=== PATIENT | female | born 1995 | race African-American/Black ===

== ENCOUNTER 2019-05-15 02:56 | Emergency (ER) | payer SELFPAY ==
[~2019-05-15] VITALS: Ht 167.6 cm; Wt 53.0 kg
[2019-05-15] MEDS ORDERED: SODIUM CHLORIDE 0.9% 1,000 ML IV ONE (04:27)
[2019-05-15] MEDS ORDERED: MORPHINE SULFATE 4 MG/ML CPJ (NOT FOR IM USE) IV STA (04:27)
[2019-05-15 05:25] LABS: CHLORIDE 107 mEq/L (98-107)
[2019-05-15 05:29] LABS: BASOPHILS % 0.1 % (0.0-2.0); EOSINOPHILS % 0.6 % (0.0-5.0); HEMATOCRIT. 34.3 % (36.0-48.0); LYMPHOCYTES % 11.2 % (20.0-50.0); MEAN CORPUSCULAR HEMOGLOBIN 24.4 pg (28.0-32.0); MEAN CORPUSCULAR VOLUME 76.1 fL (81.0-99.0); MEAN PLATELET VOLUME 7.9 fl (7.4-10.4); MONOCYTES % 4.6 % (2.0-8.0); NEUTROPHILS % 83.5 % (40.0-76.0); PLATELET 261 x1000/uL (130-400)
[2019-05-15 05:35] LABS: PROTHROMBIN TIME 10.5 sec (9.6-11.0)
[2019-05-15 05:46] LABS: CLARITY URINE CLOUDY (CLEAR); COLOR URINE YELLOW (YELLOW); KETONES URINE NEGATIVE (NEGATIVE); LEUKOCYTE ESTERASE URINE TRACE (NEGATIVE); NITRITE URINE NEGATIVE (NEGATIVE); OCCULT BLOOD URINE 3+ (NEGATIVE); PROTEIN URINE TRACE (NEGATIVE); SPECIFIC GRAVITY URINE 1.022 (1.005-1.030); UROBILINOGEN URINE 0.2 E.U./dL (0.2-1.0)
[2019-05-15 07:29] VITALS: BP 106/55
== END 2019-05-15 07:46 | disposition home or self-care (01) ==
LOC: ER 02:56
DX: R10.2 Pelvic and perineal pain (principal); R11.2 Nausea with vomiting, unspecified; R19.7 Diarrhea, unspecified; R03.0 Elevated blood-pressure reading, without diagnosis of hypertension
CPT/HCPCS: 36415; 76830; 76856; 80053; 81003; 81025; 83690; 85025; 85610; 87086; 96361; 96374; 99284; J2270; J7030